=== PATIENT | female | born 1945 | race Caucasian/White ===

== ENCOUNTER → 2016-06-26 | Outpatient (CLI) | payer MEDICARE, MEDICAID ==
[~2016-06-26] MED LIST: ALENDRONATE SOD70 M1 PO; AMLODIPINE BES10 MG PO; ASCORBIC ACID500 M1 PO; ASPIRIN CHILDRE81 M1 PO; CALCIUM + D3 E1 EACH PO; DAILY MULTIPLE1 T11 PO; DAKIN'S473 ML TP; DOCUSATE SODIU100 MG PO; DULOXETINE HYDR20 MG PO; FLUOXETINE 10MG10 MG PO; FUROSEMIDE 20MG20 MG PO; ISOSORBIDE MONO60 M1 PO; LINZESS290 MCG PO; LISINOPRIL20 MG PO; LOVASTATIN40 MG PO; METFORMIN ER500 MG PO; MIRALAX(PO17 GM/1 PA PO; OMEGA-3-ACID ETH1 GM PO; PROZAC20 MG PO; SENNA8.6 M1 PO; TANZEUM30 MG SC; TOLTERODINE TART2 MG PO; XARELTO20 MG PO
== END ==
LOC: LAB 18:56
DX: L89.95 Pressure ulcer of unspecified site, unstageable (principal)